=== PATIENT | female | born 1995 | race African-American/Black ===

== ENCOUNTER 2021-07-09 19:01 | Emergency (ER) | payer MEDICAID, OTHER ==
[~2021-07-09] VITALS: Ht 149.9 cm; Wt 70.0 kg
[2021-07-09] MEDS ORDERED: KETOROLAC 60MG/2ML VIAL IM ONE (22:15)
[2021-07-09] MEDS ORDERED: IBUP-2030 MT (22:23)
[2021-07-09] MEDS ORDERED: IBUP100O21 MT (22:28)
[2021-07-09] MEDS ORDERED: NORE-126 MT (23:03)
[2021-07-09 23:31] VITALS: BP 132/84
[2021-07-10] MEDS ORDERED: IBUP-2029 MT (17:54)
[2021-07-10] MEDS ORDERED: NORE-126 MT (17:54)
== END 2021-07-09 23:32 | disposition home or self-care (01) ==
LOC: ER 19:01
DX: N94.6 Dysmenorrhea, unspecified (principal); J45.909 Unspecified asthma, uncomplicated; Z79.899 Other long term (current) drug therapy
CPT/HCPCS: 96372; 99283; J1885

== ENCOUNTER 2023-04-04 18:41 | Emergency (ER) | payer MEDICAID, OTHER ==
[~2023-04-04] VITALS: Ht 152.4 cm; Wt 81.0 kg
[~2023-04-04 18:41] MED LIST: IBUP-2029 MT; IBUP100O21 MT; NORE-126 MT
[2023-04-04 18:44] VITALS: O2SAT 100
[2023-04-04 19:13] LABS: HEMATOCRIT 35.3 % (36.0-48.0); HEMOGLOBIN 11.8 g/dL (12.0-16.0); MEAN CORPUSCULAR HEMOGLOBIN 29.4 pg (28.0-32.0); MEAN CORPUSCULAR VOLUME 87.9 fL (81.0-99.0); PLATELET 258 x1000/uL (130-400); RED BLOOD CELL COUNT 4.02 mill/uL (4.2-5.4); RED CELL DISTRIBUTION WIDTH 14.4 % (11.6-14.6)
[2023-04-04 19:30] LABS: CHLORIDE 108 mEq/L (98-107)
[2023-04-04] MEDS ORDERED: KETOROLAC 30MG/ML VIAL IM ONE (20:15)
[2023-04-04 20:19] VITALS: BP 120/80
[2023-04-04 20:28] VITALS: PULSE 100; RESP 20; TEMP 97.7
== END 2023-04-04 20:29 | disposition home or self-care (01) ==
LOC: ER 18:41
DX: R07.89 Other chest pain (principal); J45.909 Unspecified asthma, uncomplicated; Z79.899 Other long term (current) drug therapy
CPT/HCPCS: 80053; 85027; 85379; 84484; 36415; 71045; 93005; 96372; 99285; J1885; Z7610

== ENCOUNTER 2023-08-18 11:40 | Emergency (ER) | payer MEDICAID, OTHER ==
[~2023-08-18] VITALS: Ht 157.5 cm; Wt 63.0 kg
[2023-08-18 11:47] VITALS: BP 130/86; TEMP 98.5; O2SAT 100
[2023-08-18 11:56] VITALS: PULSE 94; RESP 16
[2023-08-18] MEDS ORDERED: AMOX125S12 MT (12:42)
[2023-08-18] MEDS ORDERED: SULF1TAB48 MT (12:42)
== END 2023-08-18 13:00 | disposition home or self-care (01) ==
LOC: ER 11:40
DX: L03.213 Periorbital cellulitis (principal); J45.909 Unspecified asthma, uncomplicated; Z79.899 Other long term (current) drug therapy
CPT/HCPCS: 99283